=== PATIENT | male | born 1990 | race Caucasian/White ===

== ENCOUNTER → 2019-07-17 17:42 | Outpatient (BNVA) | payer SELFPAY | PROVIDERS: PCP Pediatrics Adolescent Medicine; Visit Provider Nurse Practitioner | DX: S92.352A Displaced fracture of fifth metatarsal bone, left foot, initial encounter for closed fracture (principal); V86.99XA Unspecified occupant of other special all-terrain or other off-road motor vehicle injured in nontraffic accident, initial encounter; M79.89 Other specified soft tissue disorders | CPT/HCPCS: 73630 ==

== ENCOUNTER → 2020-02-19 13:36 | Outpatient (BNVA) | payer OTHER, SELFPAY | PROVIDERS: PCP Pediatrics Adolescent Medicine; Visit Provider Registered Nurse | DX: J06.9 Acute upper respiratory infection, unspecified (principal); Z11.59 Encounter for screening for other viral diseases | CPT/HCPCS: 87635 ==

== ENCOUNTER 2020-10-21 14:05 | Outpatient (CLI) | payer SELFPAY ==
--- NOTE | 2020-10-21 14:14 | XR_ITS ---
WS: [id number] Exam: XR thoracic spine 3V* [id number] Date/Time of Exam: 10/21/2020 2:14 PM Reason For Exam: pain after injury There is slight depression of the cephalad end plate of the T4. This could represent a mild compressi on fracture or normal variant. No other sign of fracture was noted. No significant scoliosis. Normal paraspinal soft tissues. Recommendations: If the patient is clinically symptomatic in this region then further workup with MR I could be helpful. XR/XR thoracic spine 3V* [id number] IMPRESSION: 1. Slight depression of the cephalad end plate of T4. This could represent a mi ld compression fracture in which age is indeterminate. This could also be yamilet l variation. The remaining thoracic vertebra were normal.
== END 2020-10-21 14:06 | disposition home or self-care (01) ==
LOC: RAD 14:11
PROVIDERS: PCP Nurse Practitioner Family; Visit Provider Nurse Practitioner
DX: M54.6 Pain in thoracic spine (principal)
CPT/HCPCS: 72072

== ENCOUNTER → 2020-12-17 15:40 | Outpatient (BNVA) | payer SELFPAY | PROVIDERS: PCP Nurse Practitioner Family; Visit Provider Orthopaedic Surgery | DX: M54.5 Low back pain (principal); M41.86 Other forms of scoliosis, lumbar region | CPT/HCPCS: 72110 ==

== ENCOUNTER → 2022-02-22 16:10 | Outpatient (BNVA) | payer SELFPAY | PROVIDERS: PCP Nurse Practitioner Family; Visit Provider Family Medicine Adult Medicine | DX: Z20.2 Contact with and (suspected) exposure to infections with a predominantly sexual mode of transmission (principal) | CPT/HCPCS: 86592 ==

== ENCOUNTER 2022-07-04 07:18 | Emergency (ER) | payer OTHER, SELFPAY ==
[2022-07-04 07:24] VITALS: BP 131/77; PULSE 89; RESP 14; TEMP 36.4; O2SAT 97; BMI 20.8
--- NOTE | 2022-07-04 07:49 | ED_ITS ---
HPI - Nausea/Vomiting/Diarrhea General: Chief complaint: Nausea/Vomiting/Diarrhea Stated complaint: hasnt eaten/drank 2 days Time Seen by Provider: 07/04/22 07:36 Source: patient Mode of arrival: ambulatory Limitations: no limitations History of Present Illness: Patient is a 32-year-old male who presents to ED today with a complaint of nausea and vomiting. Patient states he began feeling nauseous yesterday and was nauseated most of the day. He states he began vomiting this morning. Patient states he believes his symptoms are secondary to alcohol as he consumes a large amount on a daily basis. Patient states he has never had alcoholic withdrawal symptoms. Denies sick contacts. Denies poor f ood exposures. Denies diarrhea. He is not having any abdominal pain. No fevers. His gave him a Reglan prior to arrival and he states this did help with his nausea. MD elicited complaint: nausea and vomiting Pertinent past history: alcohol abuse Onset (ago): day(s) Associated nausea: Yes Associated abdominal pain: No Location of pain: None Exacerbating factors: eating Relieving factors: other (reglan) Associated symtoms: Reports nausea; Denies chest pain, dizziness, dysuria, fatigue, headache(s) or malaise Review of Systems Const: Denies: fever(s), chills, body aches, fatigue or malaise Card: Denies: chest pain Resp: Denies: dyspnea GI: Reports: nausea and vomiting; Denies: abdominal pain, hematemesis, heartburn, GI cramping, change in bowel habits, pain on defecation, hematochezia or melena : Denies: flank pain, difficulty urinating, dysuria, urinary frequency, urinary urgency or urinary hesitancy Skin/Breast: Denies: rash Neuro: Denies: headache(s) or dizziness PFSH ED PFSH: Medical History Fracture of metatarsal of left foot, closed Laceration of hand with delay in treatment Syphilis contact Surgical History History of tonsillectomy and adenoidectomy Family History Family/Other Diabetes Heart disease Chronic kidney disease (CKD) Cancer Denies family history of CAD (coronary artery disease) Clotting disorder Dementia Hyperlipidemia Psychiatric illness Suicide Anesthesia complication Bleeding disorder Family history of premature coronary artery disease Lung disease Hypertension Stroke Social History Smoking and tobacco status: current every day smoker cigarettes Packs smoked per day: 1.5 Years cigarettes smoked: 14 Quit status (tobacco): has tried quititng Number of times tried to quit tobacc o: 10 Second hand smoke exposure: No Alcohol intake: current Alcohol intake frequency: few times a month Current occupational status: employed Current gender identity: Male Physical Exam Const: COMMON NORMALS: no acute distress, average body habitus, patient oriented x3, no limitations, healthy appearing, alert and well nourished GENERAL APPEARANCE: cooperative ORIENTATION/CONSCIOUSNESS: Yes awake, Yes oriented to person, Yes oriented to place and Yes oriented to time HENMT: COMMON NORMALS: normocephalic and atraumatic HEAD & SCALP: normal to inspection, normocephalic and atraumatic Resp: COMMON NORMALS: normal respiratory effort and clear to auscultation bilaterally AUSCULTATION: clear to auscultation bilaterally Cardio: COMMON NORMALS: regular rate and regular rhythm RATE: regular rate RHYTHM: regular rhythm GI: COMMON NORMALS: Normal to inspection, nondistended, normoactive bowel sounds present, Soft to palpation, non-tender, No hepatosplenomegaly present and no masses PALPATION: Yes Soft to palpation and Yes No hepatosplenomegaly pre sent Extremity: COMMON NORMALS: normal to inspection GENERAL: Yes normal exam except as noted Neuro: YAW COMA SCALE: document GCS findings Yaw coma scale eye opening: Spontaneous [place] coma scale verbal response: Orientated [place] coma scale motor response: Obey commands Yaw coma scale total score: 15 COMMON NORMALS: patient oriented x3, CN's II-XII intact bilaterally, moves all extremities, no focal motor deficits, no sensory deficits noted and gait normal SENSORIUM/ORIENTATION: Yes alert, Yes oriented to person, Yes oriented to place and Yes oriented to time Skin: COMMON NORMALS: no rashes or lesions noted GENERAL SKIN EXAM: no rashes or lesions noted Course Vital Signs: Vital signs: Vital Signs Temperature 97.6 F 07/04/22 07:24 Pulse Rate 89 07/04/22 07:24 Respiratory Rate 14 07/04/22 07:24 Blood Pressure 131/77 07/04/22 07:24 Pulse Oximetry 97 07/04/22 07:24 Oxygen Delivery Me thod 07/04/22 07:24 MDM - Nausea/Vomiting/Diarrhea Medical Decision Making Patient appears in no acute distress. His vital signs are normal. Blood work is unremarkable. He was given PO Zofran which helped his nausea. He is drinking water in the room without difficulty. He has not had any episodes of vomiting while here. Patient is cleared for discharge at this time. Lab Data 07/04/22 08:07 07/04/22 08:07 Laboratory Results WBC 6.0 10^3/uL (4.0-10.0) 07/04/22 08:07 RBC 4.95 10^6/uL (4.1-5.3) 07/04/22 08:07 Hgb 15.7 g/dL (11.7-16.6) 07/04/22 08:07 Hct 45.9 % (42.0-52.0) 07/04/22 08:07 MCV 92.7 fl (80-94) 07/04/22 08:07 MCH 31.7 pg (28.0-34.0) 07/04/22 08:07 MCHC 34.2 g/dL (30.0-36.0) 07/04/22 08:07 RDW 12.5 % (12.1-15.1) 07/04/22 08:07 Plt Count 300 10^3/cmm (130-400) 07/04/22 08:07 MPV 8.4 fL (7.4-10.4) 07/04/22 08:07 Neut % (Auto) 55.1 % 07/04/22 08:07 Lymph % (Auto) 34.4 % 07/04/22 08:07 [place] % (Auto) 7.1 % 07/04/22 08:07 Eos % (Auto) 1.7 % 07/04/22 08:07 Baso % (Auto) 1.5 % 07/04/22 08:07 Neut # (Auto) 3.32 10^3/uL (1.8-7.7) 07/04/22 08:07 Lymph # (Auto) 2.1 10^3/uL (0.8-4.8) 07/04/22 08:07 [place] # (Auto) 0.4 10^3/uL (0.2-0.9) 07/04/22 08:07 Eos # (Auto) 0.1 10^3/uL (0.0-0.8) 07/04/22 08:07 Baso # (Auto) 0.1 10^3/uL (0.0-0.1) 07/04/22 08:07 Nucleated RBC % (auto) 0 % 07/04/22 08:07 Nucleated RBCs # 0.0 /100WBC 07/04/22 08:07 Potassium 4.2 mmol/L (3.5-5.1) 07/04/22 08:07 Carbon Dioxide 29 mmol/L (22-29) 07/04/22 08:07 Anion Gap 13.2 (5-19) 07/04/22 08:07 BUN 13 mg/dL (6-20) 07/04/22 08:07 Creatinine 1.0 mg/dL (0.7-1.2) 07/04/22 08:07 Glucose 91 mg/dL (65-115) 07/04/22 08:07 Calcium 9.2 mg/dL (8.5-10.5) 07/04/22 08:07 Total Bilirubin 0.4 mg/dL (0.15-1.2) 07/04/22 08:07 AST 31 U/L (0-40) 07/04/22 08:07 ALT 17 U/L (0-41) 07/04/22 08:07 Alkaline Phosphatase 82 U/L (40-130) 07/04/22 08:07 Total Protein 7.2 g/dL (6.6-8.7) 07/04/22 08:07 Albumin 4.5 g/dL (3.5-5.2) 07/04/22 08:07 Globulin 2.7 g/dL (1.3-4.6) 07/04/22 08:07 Urine Color Yellow (Yellow) 07/04/22 08:00 Urine Appearance Sl hazy (CLEAR) A 07/04/22 08:00 Urine pH 5 (5-7) 07/04/22 08:00 Ur Specific [place] 1.020 (1.005-1.030) 07/04/22 08:00 Urine Protein Trace (Negative) 07/04/22 08:00 Urine Glucose (UA) Norm (Normal) 07/04/22 08:00 Urine Ketones 1+ (Negative) H 07/04/22 08:00 Urine Blood Neg (Negative) 07/04/22 08:00 Urine Nitrate Negative (Negative) 07/04/22 08:00 Urine Bilirubin Neg (Negative) 07/04/22 08:00 Urine Urobilinogen 1 mg/dL (Negative) H 07/04/22 08:00 Ur Leukocyte Esterase Negative (Negative) 07/04/22 08:00 Urine RBC Rare /hpf (0-2) 07/04/22 08:00 Urine WBC 10-15 /hpf (0-5) H 07/04/22 08:00 Ur Squamous Epith Cells 0-4 /hpf (0-5) H 07/04/22 08:00 Amorphous Sediment Not Reportable 07/04/22 08:00 Urine Bacteria Trace /hpf (NONE) 07/04/22 08:00 Urine Mucus 3+ /hpf 07/04/22 08:00 Urine Sperm 1+ /hpf 07/04/22 08:00 Discharge Plan Discharge Patient Disposition: Home Clinical Impression: Nausea & vomiting Qualifiers: Vomiting type: unspecified Qualified Code(s): R11.2 - Nausea with vomiting, uns pecified Condition: Stable Prescriptions: New ondansetron 4 mg tablet,disintegrating 4 mg PO Q8H PRN (Reason: nausea and vomiting) Qty: 14 0RF No Action ondansetron 8 mg tablet,disintegrating 8 mg PO Q8H 5 Days Qty: 15 0RF lidocaine-epinephrine 1 %-1:100,000 solution 2 ml intradermal ONCE Qty: 2 0RF doxycycline hyclate 100 mg tablet 100 mg PO BID 7 Days Qty: 14 0RF Discharge Orders: Discharge ED (Routine); Ordered 07/04/22 Ordered By: Chetna Mosqueda Referrals: Lucrecia Leahy FNP [Primary Care Provider] - Coding Level of Care Code ED Feed We[employer] for [employer]
[2022-07-04] MEDS: ondansetron 4 MG Tablet PO (07:54)
[2022-07-04 08:13] LABS: Basophils # 0.1 10^3/uL (0.0-0.1); Basophils % 1.5 %; Eosinophils # 0.1 10^3/uL (0.0-0.8); Eosinophils % 1.7 %; Hematocrit 45.9 % (42.0-52.0); Hemoglobin 15.7 g/dL (11.7-16.6); Lymphocytes # 2.1 10^3/uL (0.8-4.8); Lymphocytes % 34.4 %; Mean Corpuscular HGB Conc 34.2 g/dL (30.0-36.0); Mean Corpuscular Hemoglobin 31.7 pg (28.0-34.0); Mean Corpuscular Volume 92.7 fl (80-94); Mean Platelet Volume 8.4 fL (7.4-10.4); Monocytes # 0.4 10^3/uL (0.2-0.9); Monocytes % 7.1 %; Neutrophils # 3.32 10^3/uL (1.8-7.7); Neutrophils % 55.1 %; Nucleated Red Blood Cells % 0 %; Platelet Count 300 10^3/cmm (130-400); Red Blood Count 4.95 10^6/uL (4.1-5.3); Red Cell Distribution Width 12.5 % (12.1-15.1)
[2022-07-04 08:16] LABS: Add Urine Culture? No; Add Urine Microscopic? YES; Bacteria Urine TRACE /hpf; Bilirubin Urine Neg (Negative); Blood Urine Neg (Negative); Glucose Urine UA Norm (Normal); Ketones Urine 1+ (Negative); Leukocyte Esterase Urine Negative (Negative); Mucus Urine 3+ /hpf; Nitrate Urine Negative (Negative); Protein Urine Trace (Negative); RBC Urine RARE /hpf (0-2); Sperm Urine 1+ /hpf; Squamous Epithelial Cell Urine 0-4 /hpf (0-5); Urine Appearance SL Hazy (CLEAR); Urine Color Yellow (Yellow); Urobilinogen Urine 1 mg/dL (Negative); pH Urine 5 (5-7)
[2022-07-04 08:30] LABS: Alanine Aminotransferase 17 U/L (0-41); Albumin Level 4.5 g/dL (3.5-5.2); Alkaline Phosphatase 82 U/L (40-130); Anion Gap 13.2 (5-19); Aspartate Amino Transferase 31 U/L (0-40); Blood Urea Nitrogen 13 mg/dL (6-20); Calcium 9.2 mg/dL (8.5-10.5); Carbon Dioxide 29 mmol/L (22-29); Chloride 95 mmol/L (98-107); Globulin 2.7 g/dL (1.3-4.6); Glomerular Filtration Rate 87.7 mL/min (90-130); Glucose 91 mg/dL (65-115); Osmolality Calculated 276 mOsm/kg (285-295); Potassium 4.2 mmol/L (3.5-5.1); Sodium 133 mmol/L (136-145); Total Bilirubin 0.4 mg/dL (0.15-1.2); Total Protein 7.2 g/dL (6.6-8.7)
== END 2022-07-04 08:44 | disposition home or self-care (01) ==
PROVIDERS: Emergency Provider Physician Assistant; PCP Nurse Practitioner Family
DX: R11.2 Nausea with vomiting, unspecified (principal); F17.210 Nicotine dependence, cigarettes, uncomplicated
CPT/HCPCS: 80053; 81001; 85025; 99283; Q0162

== ENCOUNTER → 2024-05-14 11:16 | Outpatient (BNVA) | payer OTHER, SELFPAY | PROVIDERS: PCP Nurse Practitioner Family; Visit Provider Nurse Practitioner Psychiatric/Mental Health | DX: Z03.89 Encounter for observation for other suspected diseases and conditions ruled out (principal) | CPT/HCPCS: 80053; 80307; 84443; 85025 ==

== ENCOUNTER 2024-08-28 21:57 | Inpatient (IN) | payer SELFPAY ==
[2024-08-28 21:59] VITALS: BMI 23.3
[2024-08-28 22:08] VITALS: BP 110/74; PULSE 91; RESP 18; TEMP 36.7; O2SAT 96
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
--- NOTE | 2024-08-28 22:26 | ECG_ITS ---
[facility]: 2024-[facility]28 Pat Name: Tino Mcqueen Department: Room: Gender: Male Home Sales Consultant: : 1990 Requested By: Talita Mcmahon Order Number: [id number] Conway MD: Juan David Cárdenas M.D. Measurements Intervals [place] Rate: 95 P: 87 NH: 123 QRS: 87 QRSD: 85 T: 68 QT: 326 QTc: 411 Interpretive Statements SINUS RHYTHM No previous ECG available for comparison Electronically Signed On 08-29-2024 17:34:37 CDT by Juan David Cárdenas M.D. [email or web address] [id number]
[2024-08-28 22:40] LABS: Bacteria Urine None Seen /hpf; Hyaline Casts Urine 0-4 /lpf; RBC Urine 0-2 /hpf (0-2); Squamous Epithelial Cell Urine 0-5 /hpf (0-5); WBC Urine 0-5 /hpf (0-5)
[2024-08-28 22:42] LABS: Amphetamines Screen Urine Negative (Negative); Barbiturates Screen Urine Negative (Negative); Benzodiazepines Screen Urine Negative (Negative); Cocaine Screen Urine Negative (Negative); Opiate Screen Urine Negative (Negative); PCP Screen Urine Negative (Negative); THC Screen Urine Positive (Negative)
[2024-08-28 22:46] LABS: Bilirubin Urine Neg (Negative); Blood Urine Neg (Negative); Glucose Urine UA Norm (Normal); Ketones Urine Negative (Negative); Leukocyte Esterase Urine Negative (Negative); Nitrate Urine Negative (Negative); Protein Urine Neg (Negative); Specific Gravity, Urine 1.005 (1.005-1.030); Urine Appearance Clear (CLEAR); Urine Color Yellow (Yellow); Urobilinogen Urine Neg (Negative); pH Urine 6 (5-7)
[2024-08-28 22:56] LABS: Basophils # 0.1 10^3/uL (0.0-0.1); Basophils % 0.8 %; Eosinophils # 0.1 10^3/uL (0.0-0.8); Eosinophils % 1.7 %; Hematocrit 41.6 % (37-53); Lymphocytes # 2.4 10^3/uL (0.8-4.8); Lymphocytes % 36.9 %; Mean Corpuscular HGB Conc 35.1 g/dL (30-55); Mean Corpuscular Hemoglobin 31.6 pg (27-33); Mean Platelet Volume 8.7 fL (7.4-10.4); Monocytes # 0.4 10^3/uL (0.2-0.9); Monocytes % 6.4 %; Neutrophils # 3.55 10^3/uL (1.8-7.7); Neutrophils % 53.9 %; Nucleated Red Blood Cells % 0 %; Platelet Count 290 10^3/cmm (157-399); Red Blood Count 4.62 10^6/uL (3.85-5.65); Red Cell Distribution Width 15.3 % (12.1-15.1); White Blood Count 6.58 10^3/uL (3.29-11.43)
[2024-08-28 23:35] LABS: Alanine Aminotransferase 20 U/L (0-41); Albumin Level 4.4 g/dL (3.5-5.2); Alkaline Phosphatase 87 U/L (40-130); Anion Gap 14.9 (5-19); Aspartate Amino Transferase 30 U/L (0-40); Blood Urea Nitrogen 5 mg/dL (6-20); Calcium 9.8 mg/dL (8.5-10.5); Carbon Dioxide 28 mmol/L (22-29); Chloride 112 mmol/L (98-107); Creatinine Clr Calc Pharmacy 93.4518; Globulin 3.1 g/dL (1.3-4.6); Glomerular Filtration Rate 86.6 mL/min (90-130); Glucose 106 mg/dL (65-115); Osmolality Calculated 310 mOsm/kg (285-295); Potassium 3.9 mmol/L (3.5-5.1); Sodium 151 mmol/L (136-145); Total Bilirubin 0.2 mg/dL (0.15-1.2); Total Protein 7.5 g/dL (6.6-8.7)
[2024-08-28 23:36] LABS: Acetaminophen < 5.0 ug/mL (10-30); Alcohol Level 301 mg/dL (0-10); Salicylate < 0.3 mg/dL (3-10)
[2024-08-29] VITALS (7 sets, daily range): BP systolic 102–139; BP diastolic 63–84; PULSE 74–96; RESP 16–17; TEMP 36.4–37.1; O2SAT 93–99
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
[2024-08-29] MEDS: hyDROXYzine 25 mg Capsule 50 MG PO (01:01)
[2024-08-29] MEDS: trazodone 50 mg Tablet PO (01:01)
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
[2024-08-29] MEDS: multivitamin therapeutic Tablet 1 TAB PO (08:56)
[2024-08-29] MEDS: folic acid 1 mg Tablet PO (08:56)
[2024-08-29] MEDS: thiamine 100 mg Tablet PO (08:56)
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
[2024-08-30 04:00] VITALS: BP 135/84; PULSE 92; RESP 18; O2SAT 99
[2024-08-30 08:00] VITALS: BP 131/85; PULSE 71; RESP 15; TEMP 36.7; O2SAT 99
[2024-08-30] MEDS: folic acid 1 mg Tablet PO (08:17)
[2024-08-30] MEDS: multivitamin therapeutic Tablet 1 TAB PO (08:17)
[2024-08-30] MEDS: thiamine 100 mg Tablet PO (08:17)
[2024-08-30 12:00] VITALS: BP 133/84; PULSE 84; RESP 16; O2SAT 99
[2024-08-30 14:00] VITALS: BP 128/82; PULSE 85; RESP 15; TEMP 36.8; O2SAT 99
[2024-08-30 16:13] VITALS: BP 115/79; PULSE 95; RESP 16; TEMP 36.8; O2SAT 98
[2024-08-30] MEDS: nicotine 2 mg Gum BUCCAL (18:47)
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
[2024-08-30 20:00] VITALS: BP 142/84; PULSE 85; RESP 18; TEMP 36.5; O2SAT 100
[2024-08-31] VITALS (7 sets, daily range): BP systolic 120–146; BP diastolic 77–85; PULSE 77–91; RESP 16–18; TEMP 36.6–37.1; O2SAT 96–100
[2024-08-31] MEDS: thiamine 100 mg Tablet PO (09:09)
[2024-08-31] MEDS: multivitamin therapeutic Tablet 1 TAB PO (09:09)
[2024-08-31] MEDS: folic acid 1 mg Tablet PO (09:09)
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
[2024-08-31] MEDS: nicotine 2 mg Gum BUCCAL ×2 (19:26→22:38)
[2024-09-01 04:00] VITALS: BP 117/87; PULSE 87; RESP 18; TEMP 36.4; O2SAT 100
[2024-09-01 06:00] VITALS: BMI 20.8
[2024-09-01 08:00] VITALS: BP 123/83; PULSE 83; RESP 17; TEMP 36.6; O2SAT 100
[2024-09-01] MEDS: folic acid 1 mg Tablet PO (08:59)
[2024-09-01] MEDS: thiamine 100 mg Tablet PO (08:59)
[2024-09-01] MEDS: multivitamin therapeutic Tablet 1 TAB PO (08:59)
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
[2024-09-01 12:00] VITALS: BP 120/85; PULSE 98; RESP 18; TEMP 36.9; O2SAT 98
[2024-09-01 16:00] VITALS: BP 133/84; PULSE 92; RESP 18; TEMP 36.9; O2SAT 98
[2024-09-01] MEDS: nicotine 2 mg Gum BUCCAL (18:02)
[2024-09-01 19:38] VITALS: BP 125/80; PULSE 90; RESP 16; TEMP 37.2; O2SAT 99
[2024-09-01] MEDS: trazodone 50 mg Tablet PO (20:35)
[2024-09-01] MEDS: hyDROXYzine 25 mg Capsule 50 MG PO (20:35)
[2024-09-02 06:00] VITALS: BP 106/68; PULSE 88; RESP 18; TEMP 36.7; O2SAT 98
[2024-09-02] MEDS: naltrexone hcl 50 mg Tablet PO (08:50)
[2024-09-02] MEDS: multivitamin therapeutic Tablet 1 TAB PO (08:50)
[2024-09-02] MEDS: thiamine 100 mg Tablet PO (08:50)
[2024-09-02] MEDS: nicotine 4 mg lozenge MUCOUS MEM (08:50)
[2024-09-02] MEDS: folic acid 1 mg Tablet PO (08:50)
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
[2024-09-02 13:04] VITALS: BP 106/68; PULSE 88; RESP 18; TEMP 36.7; O2SAT 98
[2024-09-02 14:00] VITALS: BP 148/82; PULSE 84; RESP 16; TEMP 36.6; O2SAT 99
== END 2024-09-02 14:24 | disposition home or self-care (01) | DRG 885 ==
LOC: ER 08-29 00:04 → NP 08-29 00:05
PROVIDERS: Admitting Provider Psychiatry & Neurology Psychiatry; Emergency Provider Emergency Medicine; PCP Nurse Practitioner Family; Visit Provider Psychiatry & Neurology Psychiatry
DX: F33.2 Major depressive disorder, recurrent severe without psychotic features (principal); R45.851 Suicidal ideations; F41.1 Generalized anxiety disorder; F12.20 Cannabis dependence, uncomplicated; F17.210 Nicotine dependence, cigarettes, uncomplicated; Z81.8 Family history of other mental and behavioral disorders; F10.229 Alcohol dependence with intoxication, unspecified; Y90.8 Blood alcohol level of 240 mg/100 ml or more
CPT/HCPCS: 36415; 80053; 80306; 80307; 81001; 84443; 85025; 93005; 97150; 97165; 99285; J9999